=== PATIENT | female | born 1985 | race African-American/Black ===

== ENCOUNTER 2016-11-21 21:21 | Emergency (ER) | payer BC ==
[2016-11-21 21:46] VITALS: BP 132/80; PULSE 75; TEMP 98.2; BMI 23.3
--- NOTE | 2016-11-21 21:50 | PDOC ---
History of Present Illness - General Chief Complaint: Urinary Problem Stated Complaint: ABDOMINAL PAIN Time Seen by Provider: 11/21/16 21:48 History Source: Patient - History of Present Illness Timing/Duration: reports: constant Abdominal Pain Onset Location: reports: suprapubic Past History - Past Medical History Allergies/Adverse Reactions: Allergies Allergy/AdvReac Type Severity Reaction Status Date / Time No Known Drug Allergies Allergy Verified 11/21/16 21:28 Home Medications: Ambulatory Orders Nitrofurantoin Monohyd/M-Cryst [Macrobid -] 100 mg PO BID #13 capsule 11/21/16 Anemia: Yes Asthma: No Cancer: No Cardiac Disorders: No CVA: No COPD: No CHF: No Dementia: No Diabetes: No GI Disorders: No Disorders: No HTN: No Hypercholesterolemia: No Liver Disease: No Seizures: No Thyroid Disease: No - Surgical History Abdominal Surgery: Yes Appendectomy: Yes (03/2013) Cholecystectomy: No Orthopedic Surgery: No - Reproductive History (#): 0 Para: 0 Therapeutic (s) & number: No Spontaneous : 0 - Immunization History Immunization Up to Date: Yes - Psycho/Social/Smoking Cessation Hx Anxiety: No Suicidal Ideation: No Smoking Status: No Smoking History: Never smoked Have you smoked in the past 12 months: No Number of Cigarettes Smoked Daily: 0 Hx Alcohol Use: No Drug/Substance Use Hx: No Substance Use Type: None Hx Substance Use Treatment: No Abd/GI Specific PMHX - Complaint Specific PMHX GERD: No GI Ulcer Disease: No Review of Systems - Review of Systems Constitutional: No: Chills, Fever : Yes: Frequency. No: Discharge, Flank Pain, Hematuria *Physical Exam - Vital Signs Last Vital Signs Temp Pulse Resp BP Pulse Ox 98.2 F 75 16 132/80 98 11/21/16 21:33 11/21/16 21:33 11/21/16 21:33 11/21/16 21:33 11/21/16 21:33 - Physical Exam General Appearance: Yes: Appropriately Dressed. No: Apparent Distress HEENT: positive: Normal Voice Neck: positive: Supple Respiratory/Chest: negative: Respiratory Distress Gastrointestinal/Abdominal: positive: Soft. negative: Tender Musculoskeletal: negative: CVA Tenderness Integumentary: positive: Dry, Warm Neurologic: positive: Fully Oriented, Alert, Normal Mood/Affect Medical Decision Making - Medical Decision Making 11/21/16 21:59 31-year-old female, denies any past medical history, diagnosed with UTI at [facility] 2 weeks ago after p/w suprapubic discomfort and urinary frequency. Started on ceftin. Does not know results of urine culture as per pt. States though she completed medication, symptoms continue. Denies flank/ back pain, hematuria, nausea, vomiting, fever or chills. Feels well otherwise. No history of kidney stones. Patient well-appearing and stable with unremarkable exam, no e/o pyelo at this time. UA/culture pending though might be falsely negative based on recent abx course. No ucx on record to review 11/21/16 22:02 11/21/16 22:05 11/21/16 22:11 UA neg for le and nit. Will dc w/ macrobid. Reasons to return d/w pt *DC/Admit/Observation/Transfer Diagnosis at time of Disposition: Dysuria - Discharge Dispostion Disposition: HOME Condition at time of disposition: Good - Prescriptions Prescriptions: Nitrofurantoin Monohyd/M-Cryst [Macrobid -] 100 mg PO BID #13 capsule - Referrals Referrals: Nash Lepe MD [Primary Care Provider] - - Patient Instructions Printed Discharge Instructions: Urinary Tract Infection Additional Instructions: Take medication as directed and contact ED in 2-3 days for results of urine culture. The urine culture is to ensure that antibiotics we gave you will treat your infection. The number is [phone]. Return to ER for worsening of symptoms
[2016-11-21 22:03] LABS: URINE APPEARANCE CLEAR; URINE BILIRUBIN NEGATIVE (NEGATIVE); URINE BLOOD NEGATIVE (NEGATIVE); URINE COLOR STRAW; URINE GLUCOSE (UA) NEGATIVE (NEGATIVE); URINE KETONE NEGATIVE (NEGATIVE); URINE LEUK ESTERASE NEGATIVE (NEGATIVE); URINE NITRITE NEGATIVE (NEGATIVE); URINE PROTEIN NEGATIVE (NEGATIVE); URINE UROBILINOGEN NEGATIVE E.U./dl (0.2-1.0)
[2016-11-21] MEDS ORDERED: NITROFURANTOIN MACROCRYSTAL 50 MG CAPSULE (FP) ONE (22:05)
[2016-11-21] MEDS ORDERED: NITROFURANTOIN MACROCRYSTAL 50 MG CAPSULE (FP) PO SCH (22:15)
--- NOTE | 2016-11-21 22:24 | PDOC ---
*Physical Exam - Vital Signs Last Vital Signs Temp Pulse Resp BP Pulse Ox 98.2 F 75 16 132/80 98 11/21/16 21:33 11/21/16 21:33 11/21/16 21:33 11/21/16 21:33 11/21/16 21:33 ED Treatment Course - ADDITIONAL ORDERS Additional order review: Laboratory Results 11/21/16 21:50 Urine Color Straw Urine Appearance Clear Urine pH 6.0 Ur Specific [place] 1.011 Urine Protein Negative Urine Glucose (UA) Negative Urine Ketones Negative Urine Blood Negative Urine Nitrite Negative Urine Bilirubin Negative Urine Urobilinogen Negative Ur Leukocyte Esterase Negative Urine HCG, Qual Negative *DC/Admit/Observation/Transfer Diagnosis at time of Disposition: Dysuria - Discharge Dispostion Condition at time of disposition: Good - Prescriptions Prescriptions: Nitrofurantoin Monohyd/M-Cryst [Macrobid -] 100 mg PO BID #13 capsule - Referrals Referrals: Nash Lepe MD [Primary Care Provider] - - Patient Instructions Printed Discharge Instructions: Urinary Tract Infection Additional Instructions: Take medication as directed and contact ED in 2-3 days for results of urine culture. The urine culture is to ensure that antibiotics we gave you will treat your infection. The number is [phone]. Return to ER for worsening of symptoms - Post Discharge Activity
[2016-11-22 00:20] LABS: BASOPHIL 0.6 % (0-2.0); EOSINOPHIL 1.8 % (0-4.5); MCHC 33.8 g/dl (32.0-36.0); MEAN CELL VOLUME 91.7 fl (80-96); MEAN PLT VOLUME 10.2 fl (7.5-11.1); NEUTROPHILS 52.1 % (42.8-82.8); PLATELET COUNT 133 K/MM3 (134-434); WHITE BLOOD COUNT 5.8 K/mm3 (4.0-10.0)
[2016-11-22 00:46] LABS: ALBUMIN 4.1 g/dl (3.4-5.0); ALK PHOS 34 U/L (45-117); ANION GAP 11 (8-16); BILIRUBIN,TOTAL 0.6 mg/dL (0.2-1.0); CALCIUM 9.1 mg/dL (8.5-10.1); CO2 27 mmol/L (21-32); CREATININE 0.8 mg/dL (0.55-1.02); GLUCOSE,RANDOM 73 mg/dL (74-106); SGOT/AST 20 U/L (15-37); SGPT/ALT 19 U/L (12-78); TOT PROT 7.5 g/dl (6.4-8.2)
--- NOTE | 2016-11-25 12:21 | PDOC ---
Patient Follow-up (Call Back) - Post ED Follow - Up Condition at time of discharge: Good Disposition at time of original discharge: HOME - Disposition Additional Instructions/Notes: The patient called to [facility] and spoke with me extensively about how she still has urinary symptoms and should have been prescribed Cipro. I tried to explain to her multiple times that her urine culture came back negative for any bacteria and that I could not call her out a medication for a negative test. She was very upset and took my name down. I suggested she call a Urologist or follow up with her PCP, Dr. Lepe. She was not happy with that suggestion.
== END 2016-11-22 00:54 | disposition home or self-care (01) ==
LOC: JER 21:21
DX: R30.0 Dysuria (principal)
CPT/HCPCS: 36415; 80053; 81003; 84702; 84703; 85025; 87086; 99281-25

== ENCOUNTER 2016-12-12 01:51 | Emergency (ER) | payer BC ==
[2016-12-12 02:50] VITALS: BP 111/75; PULSE 66; TEMP 97.4; BMI 24.9
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
== END 2016-12-12 04:00 | disposition home or self-care (01) ==
LOC: JER 01:51
DX: F10.120 Alcohol abuse with intoxication, uncomplicated (principal)
CPT/HCPCS: 99281-25

== ENCOUNTER 2019-01-19 21:32 | Emergency (ER) | payer BC | END 2019-01-19 23:24 | LOC: JER 21:32 ==

== ENCOUNTER 2019-05-16 06:27 | Emergency (ER) | payer BC ==
[2019-05-16 06:34] VITALS: BMI 20.5
[2019-05-16] MEDS ORDERED: ACETAMINOPHEN 325 MG TABLET (FP) PO ONE (08:04)
[2019-05-16] MEDS ORDERED: ACETAMINOPHEN 325 MG TABLET (FP) ONE (08:15)
--- NOTE | 2019-05-16 08:16 | PDOC ---
History of Present Illness - General Chief Complaint: Vaginal Sxs Stated Complaint: labia pain Time Seen by Provider: 05/16/19 07:19 History Source: Patient Exam Limitations: No Limitations - History of Present Illness Initial Comments: 05/16/19 08:13 33F with a PMH of recent "cosmetic" labia surgery who presents to the ER with complaints of labia pain. She also states that she has "a blood clot down there " but does not describe it further. The patient states that the pain has worsened over the last "couple" days. She called the DYNAMITE CARTRIDGE CRIMPER who told her to put ice on it but it does not seem to be helping. She admits to taking ibuprofen with mild relief in symptoms. She states that she is allergic to "the strong stuff" but did not take tylenol. Admits to labial pain but denies fever, chills , nausea, vomiting, discharge, and dysuria. DYNAMITE CARTRIDGE CRIMPER who did surgery: Dr. Stanley Madrigal [phone] Past History - Past Medical History Allergies/Adverse Reactions: Allergies Allergy/AdvReac Type Severity Reaction Status Date / Time No Known Drug Allergies Allergy Verified 12/12/16 02:13 Home Medications: Ambulatory Orders Sulfamethoxazole/Trimethoprim [Bactrim Ds -] 1 tab PO BID #10 tablet 05/16/19 Anemia: Yes Asthma: No Cancer: No Cardiac Disorders: No CVA: No COPD: No CHF: No Dementia: No Diabetes: No GI Disorders: No Disorders: No HTN: No Hypercholesterolemia: No Liver Disease: No Seizures: No Thyroid Disease: No - Surgical History Abdominal Surgery: Yes Appendectomy: Yes (03/2013) Cholecystectomy: No Orthopedic Surgery: No - Reproductive History Is Patient Now?: No (#): 0 Para: 0 Therapeutic (s) & number: No Spontaneous : 0 - Immunization History Immunization Up to Date: Yes - Suicide/Smoking/Psychosocial Hx Smoking Status: No Smoking History: Never smoked Have you smoked in the past 12 months: No Number of Cigarettes Smoked Daily: 0 Hx Alcohol Use: No Drug/Substance Use Hx: No Substance Use Type: None Hx Substance Use Treatment: No Review of Systems - Review of Systems Able to Perform ROS?: Yes Is the patient limited Serbian proficient: No Constitutional: No: Chills, Fever Respiratory: No: Shortness of Breath Cardiac (ROS): No: Chest Pain ABD/GI: No: Nausea, Vomiting, Other (Abd pain) : Yes: Other (Labial pain). No: Burning, Dysuria, Discharge *Physical Exam - Vital Signs Last Vital Signs Temp Pulse Resp BP Pulse Ox 98.5 F 79 18 127/61 100 05/16/19 06:32 05/16/19 06:32 05/16/19 06:32 05/16/19 06:32 05/16/19 06:32 - Physical Exam Comments: 05/16/19 09:16 GENERAL: Well developed, well nourished. Awake and alert. No acute distress. HEENT: Normocephalic, atraumatic. Hearing grossly normal. Moist mucous membranes. PERRLA, EOMI. No conjunctival pallor. Sclera are non-icteric. NECK: Supple. Full ROM. No JVD. GENITOURINARY: R labia majora with redness, induration, and fluctuance on inferior margin without active drainage. MUSCULOSKELETAL: Normal range of motion at all joints. No bony deformities or tenderness. EXTREMITIES: No cyanosis. No clubbing. No edema. No calf tenderness or swelling. SKIN: Warm and dry. Normal capillary refill. No rashes. No jaundice. NEUROLOGICAL: Alert, awake, appropriate. Cranial nerves 2-12 grossly intact. Normal speech. Gait is normal without ataxia. PSYCHIATRIC: Cooperative. Good eye contact. Appropriate mood and affect. Medical Decision Making - Medical Decision Making 05/16/19 09:17 33F with a recent fat grafting to labia who presents with labial abscess. D/w Dr. Landeros who will see patient in office today or tomorrow. Pt aware. Given dose of abx and tylenol for pain control. Pt feels better and will d/c with PIERCING MILL OPERATOR f/u. *DC/Admit/Observation/Transfer Diagnosis at time of Disposition: Labial abscess - Discharge Dispostion Disposition: HOME Condition at time of disposition: Stable Decision to Admit order: No - Prescriptions Prescriptions: Sulfamethoxazole/Trimethoprim [Bactrim Ds -] 1 tab PO BID #10 tablet - Referrals - Patient Instructions Printed Discharge Instructions: DI for Incision and Drainage of a Skin Abscess Additional Instructions: Please follow up with Dr. Madrigal's office either today or tomorrow. He will have anesthesiologists in his office tomorrow at 1 pm. Please return to the ER if you have any signs or symptoms of chest pain, shortness of breath, uncontrollable fever, chills, nausea, vomiting, numbness, tingling, or weakness in any part of your body, changes in vision, or slurred speech. Please take your medications as prescribed. Please return to the ER if symptoms persist, worsen, or new symptoms arise. - Post Discharge Activity
[2019-05-16] MEDS ORDERED: SULFAMETHOXAZOLE/TRIMETHOPRIM 800MG/160MG D.S. TABLET PO ONE (09:15)
--- NOTE | 2019-05-16 09:18 | PDOC ---
Attending Attestation - Resident Resident Name: Les Caruso - ED Attending Attestation I have performed the following: I have examined & evaluated the patient, The case was reviewed & discussed with the resident, I agree w/resident's findings & plan, Exceptions are as noted - HPI HPI: 05/16/19 09:16 33 F with h/o recent vaginal labioplasty 8 days ago presenting to ED with R labial swelling and pain. Pt states that she had a "fat graft" to both labia. Over the past week, she has had worsening swelling and pain to the R side of her vagina. Denies any drainage. Denies F/C. - Physicial Exam PE: 05/16/19 09:17 "GENERAL: Awake, alert, and fully oriented, in no acute distress. HEAD: No signs of trauma EYES: PERRLA, EOMI, sclera anicteric, conjunctiva clear ENT: Auricles normal inspection, hearing grossly normal, nares patent, oropharynx clear without exudates. Moist mucosa NECK: Nontender, no stepoffs, Normal ROM, supple, no lymphadenopathy, JVD, or masses LUNGS: Breath sounds equal, clear to auscultation bilaterally. No wheezes, and no crackles HEART: Regular rate and rhythm, normal S1 and S2, no murmurs, rubs or gallops ABDOMEN: Soft, nontender, normoactive bowel sounds. No guarding, no rebound. No masses EXTREMITIES: Normal range of motion, no edema. No clubbing or cyanosis. No cords, erythema, or tenderness NEUROLOGICAL: Cranial nerves II through XII intact. 5/5 strength and sensation in all extremities, Normal speech, normal gait, normal cerebellar function SKIN: Warm, Dry, normal turgor, no rashes or lesions noted. : + R labia swollen with induration and fluctuance, tenderness to palpation, no active drainage - Medical Decision Making 05/16/19 09:18 33 F with likely post-op infection after labioplasty. - Discussed with pt's asphalt mixing machine operator, Dr. Madrigal, who recommends starting abx. He will see pt in his office today or tomorrow Pt is well appearing, with normal vitals. Clinically stable for DC at this time. I discussed the physical exam findings, ancillary test results and final diagnoses with the patient. I answered all of the patient's questions. The patient was satisfied with the care received and felt comfortable with the discharge plan and treatment plan. The patient agrees to follow up with the primary care physician within 24-72 hours.
[2019-05-16] MEDS ORDERED: SULFAMETHOXAZOLE/TRIMETHOPRIM 800MG/160MG D.S. TABLET ONE (09:30)
[2019-05-16 10:00] VITALS: BP 124/72; PULSE 74; TEMP 98.8
== END 2019-05-16 09:59 | disposition home or self-care (01) ==
LOC: JER 06:27
DX: N76.4 Abscess of vulva (principal)
CPT/HCPCS: 99282-25

== ENCOUNTER 2020-03-01 19:46 | Emergency (ER) | payer BC ==
[2020-03-01 19:55] VITALS: BMI 29.9
[2020-03-01] MEDS ORDERED: ACETAMINOPHEN 1000 MG/100 ML VIAL (NON FORMULARY) IVPB ONE (20:39)
[2020-03-01] MEDS ORDERED: SODIUM CHLORIDE 0.9% 500 ML INFUS.BAG IV ONE (20:40)
[2020-03-01 20:52] VITALS: BP 129/92; PULSE 97; TEMP 98.4
[2020-03-01] MEDS ORDERED: ACETAMINOPHEN INJECTION 100 ML IVPB ONE (20:56)
--- NOTE | 2020-03-01 21:02 | PDOC ---
History of Present Illness - General Chief Complaint: Choking Sensation Stated Complaint: COVID Time Seen by Provider: 03/01/20 20:00 - History of Present Illness Initial Comments: 34 YOF h/o PCOS s/p abdmonoplasty 2 shanta prior to arrival presents with fever, chest pain, palpatations and loss of smell and taste in the context of a recent COVID diagnosis. Per the patient, she was in [place] in January where she underwent an abdominoplasty and subsequently stayed in a "recovery house" with a number of other patients, one of which recently tested positive for COVID. She returned to [place] on February 20 and began to experience the following symptoms: loss of smell and taste, low grade fever, chest pain, palpatations, nausea and diarrhea. She presented on the 24 of February to [facility] where she received a COVID swab which was positive. She was discharged home with instructions to take tylenol and self isolate. Her symptoms continued up until today where she decided to come in for further evaluation. She denies SOB, vomiting, respiratory distress/ discomfort, leg swelling, pain on inspiration, loss of strength or sensation, speech difficulty, confusion, or drainage or pain at her surgical site. 03/01/20 21:19 Past History - Medical History Allergies/Adverse Reactions: Allergies Allergy/AdvReac Type Severity Reaction Status Date / Time No Known Drug Allergies Allergy Verified 03/01/20 19:54 Home Medications: Ambulatory Orders Sulfamethoxazole/Trimethoprim [Bactrim Ds -] 1 tab PO BID #10 tablet 05/16/19 Anemia: Yes Asthma: No Cancer: No Cardiac Disorders: No CVA: No COPD: No CHF: No Dementia: No Diabetes: No GI Disorders: No Disorders: No HTN: No Hypercholesterolemia: No Liver Disease: No Seizures: No Thyroid Disease: No - Surgical History Abdominal Surgery: Yes Appendectomy: Yes (03/2013) Cholecystectomy: No Orthopedic Surgery: No - Reproductive History (#): 0 Para: 0 Therapeutic (s) & number: No Spontaneous : 0 - Immunization History Immunization Up to Date: Yes - Psycho-Social/Smoking History Smoking Status: No Smoking History: Never smoked Have you smoked in the past 12 months: No Number of Cigarettes Smoked Daily: 0 - Substance Abuse Hx (Audit-C & DAST Scrn) How often the patient has a drink containing alcohol: Monthly or less Score: In Men: 4 or > Positive; In Women: 3 or > Positive: 1 Screen Result (Pos requires Nsg. Audit-10AR): Negative In the last yr the pt used illegal drug/Rx for NonMed reason: No Score: Yes response is considered Positive: 0 Screen Result (Positive result requires Nsg. DAST-10): Negative Review of Systems - Review of Systems Able to Perform ROS?: Yes Constitutional: Yes: See HPI HEENTM: Yes: See HPI Respiratory: Yes: See HPI Cardiac (ROS): Yes: See HPI ABD/GI: Yes: See HPI : Yes: See HPI Musculoskeletal: Yes: See HPI Integumentary: Yes: See HPI Neurological: Yes: See HPI Endocrine: Yes: See HPI Hematologic/Lymphatic: Yes: See HPI *Physical Exam - Vital Signs Last Vital Signs Temp Pulse Resp BP Pulse Ox 100.3 F H 55 L 20 149/99 100 03/01/20 19:51 03/01/20 19:51 03/01/20 19:51 03/01/20 19:51 03/01/20 19:56 Medical Decision Making - Medical Decision Making 34 YOF with fever, chest pain, palpitations, loss of sense of smell and taste, nausea, and diarrhea presents in the context of recent COVID diagnosis seeking further evaluation. She denies SOB, stroke symptoms, leg swelling, pleuritic pain, or symptoms of surgical site infection. Physical exam unrevealing of any abnormalities. Her lungs are clear, and she displays no signs of respiratory difficulty. Differential includes but is not limitted to: COVID-19 infection, [place]. Less concerned for PE/DVT given lack of pleuritic pain, SOB, or leg swelling. Plan: Will do CXR, EKG, Serum . Will give Tylenol 1000mgs and NS 1000 mls. Reassess: EKG showing normal sinus rythm, no longer febrile, O2 sat 100 on room air. Chest X Ray reviewed and interpretted by me no sign of infiltrate or consolidation, no opacities, no acute abnormalities. Selected Entries 03/01/20 20:20 Temperature 98.4 F Pulse Rate [ 97 H Right Radial] Respiratory 18 Rate Blood Pressure 129/92 [Left Arm] O2 Sat by Pulse 100 Oximetry (%) Dispo: Will discharge to home with advice to continue taking tylenol and self isolate given stable vitals, normal EKG and CXR. 03/01/20 22:01 Discharge - Discharge Information Problems reviewed: Yes Clinical Impression/Diagnosis: COVID-19, Palpitations Condition: Good Disposition: HOME - Admission No - Follow up/Referral - Patient Discharge Instructions Patient Printed Discharge Instructions: [facility] COVID-19 Isolation Protocol, R-Coronavirus Instructions Additional Instructions: You were here for symptoms related to COVID19. You were found to be medically stable. Your chest X ray, EKG, and labs, showed no abnormalities. You were given 1 liter of fluids and 1gram of tylenol for your symptoms. You were discharged and advised to self isolate and take tylenol for you symptoms. - Post Discharge Activity
--- NOTE | 2020-03-01 21:22 | PDOC ---
Documentation entered by Irena Lindsay SCRIBE, acting as scribe for Joshua Cespedes MD. Joshua Cespedes MD: This documentation has been prepared by the Neftali caballero Nirvannie, SCRIBE, under my direction and personally reviewed by me in its entirety. I confirm that the documentation accurately reflects all work, treatment, procedures, and medical decision making performed by me. Attending Attestation - Resident Resident Name: RadhaAaron - ED Attending Attestation I have performed the following: I have examined & evaluated the patient, The case was reviewed & discussed with the resident, I agree w/resident's findings & plan, Exceptions are as noted - HPI HPI: 03/01/20 21:21 The patient is a 34 year old female with a significant past medical history of recent covid diagnosis (02/24) who presents to the ED with a choking sensation. As per patient, she recently traveled to [place] to have a tummy tuck and believes she contracted covid there. Patient notes experiencing loss of taste/smell, generalized malaise, and fevers before being diagnosed with COVID on 02/24. Pt states that today, she began to have a choking sensation in her house. States that she feels like her throat is closing up, but this resolves as soon as she leaves. Pt has no complaints at this time in the ED. Denies SOB. Denies difficulty swallowing/breathing. Denies tongue or lip swelling. No foreign body sensation. - Physicial Exam PE: 03/01/20 21:24 "GENERAL: Awake, alert, and fully oriented, in no acute distress. HEAD: No signs of trauma EYES: PERRLA, EOMI, sclera anicteric, conjunctiva clear ENT: Auricles normal inspection, hearing grossly normal, nares patent, oropharynx clear without exudates. Moist mucosa NECK: Nontender, no stepoffs, Normal ROM, supple, no lymphadenopathy, JVD, or masses LUNGS: Breath sounds equal, clear to auscultation bilaterally. No wheezes, and no crackles HEART: Regular rate and rhythm, normal S1 and S2, no murmurs, rubs or gallops ABDOMEN: Soft, nontender, normoactive bowel sounds. No guarding, no rebound. No masses EXTREMITIES: Normal range of motion, no edema. No clubbing or cyanosis. No cords, erythema, or tenderness NEUROLOGICAL: Cranial nerves II through XII intact. 5/5 strength and sensation in all extremities, Normal speech, normal gait, normal cerebellar function SKIN: Warm, Dry, normal turgor, no rashes or lesions noted. - Medical Decision Making 03/01/20 21:24 34 F with intermittent choking sensation, now asymptomatic in ED. No stridor on exam or other evidence of upper airway obstruction. Pt well appearing, normal exam. Noted to have fever in ED, likely due to active COVID infection. - CXR - Tylenol 03/01/20 21:59 CXR clear Pt re-evaluated, continues to feel well with no complaints. Pt is well appearing, with normal vitals. Clinically stable for DC at this time. I discussed the physical exam findings, ancillary test results and final diagnoses with the patient. I answered all of the patient's questions. The patient was satisfied with the care received and felt comfortable with the discharge plan and treatment plan. The patient agrees to follow up with the primary care physician within 24-72 hours. Please note this patient was evaluated during the COVID-19 crisis with the presidential Salazar Act Declaration and the [facility] executive order number 202. He/she was evaluated and clinical decisions were made relative to healthcare system resources as well as clinical picture during a pandemic crisis situation. Discharge - Discharge Information Problems reviewed: Yes Clinical Impression/Diagnosis: COVID-19, Palpitations Condition: Good Disposition: HOME - Follow up/Referral - Patient Discharge Instructions Patient Printed Discharge Instructions: [facility]-Coronavirus Instructions, [facility]- [facility] COVID-19 Isolation Protocol Additional Instructions: You were here for symptoms related to COVID19. You were found to be medically stable. Your chest X ray, EKG, and labs, showed no abnormalities. You were given 1 liter of fluids and 1gram of tylenol for your symptoms. You were discharged and advised to self isolate and take tylenol for you symptoms. - Post Discharge Activity
--- NOTE | 2020-03-02 10:22 | EKG ---
Test Reason : Blood Pressure : / mmHG Vent. Rate : 089 BPM Atrial Rate : 089 BPM P-R Int : 164 ms QRS Dur : 078 ms QT Int : 358 ms P-R-T Axes : 073 055 016 degrees QTc Int : 435 ms NORMAL SINUS RHYTHM NORMAL ECG WHEN COMPARED WITH ECG OF 19-JAN-2019 21:53, NO SIGNIFICANT CHANGE WAS FOUND Confirmed by Krishna Fisher ([id number]) on 03/02/2020 10:22:24 AM Referred By: Confirmed By:Krishna Fisher
== END 2020-03-01 22:33 | disposition home or self-care (01) ==
LOC: JER 19:46
PROC: 3E033NZ Introduction of Analgesics, Hypnotics, Sedatives into Peripheral Vein, Percutaneous Approach (ICD-10-PCS; principal; 2020-03-01)
DX: R00.2 Palpitations (principal); U07.1 COVID-19
CPT/HCPCS: 36415; 71046-TC-FY; 84703; 93005; 93010; 99284-25

== ENCOUNTER 2020-03-08 18:31 | Emergency (ER) | payer BC ==
[2020-03-08 18:57] VITALS: BP 133/91; TEMP 98.7; BMI 30.1
--- NOTE | 2020-03-08 19:26 | PDOC ---
Attending Attestation - Resident Resident Name: TarabonitaWarren - ED Attending Attestation I have performed the following: I have examined & evaluated the patient, The case was reviewed & discussed with the resident, I agree w/resident's findings & plan - HPI HPI: 03/08/20 19:39 Pt states that she tested COVID + on February 24 at [facility]. Pt has PMHx of tummy tuck recently Pt has been to out ER for panic attacks in the past. Pt is requesting another COVID test. Pt is requesting Remdesivir. Pt has normal pulsox 99% on RA Pt wants a stomach XR to make sure her "tummy tuck is OK" Pt has no fever. SPeaking in full sentences. Appears well. Needs reassurance. - Physicial Exam PE: 03/08/20 19:45 Normal exam Normal vitals - Medical Decision Making 03/08/20 20:36 lung ball normal on CXR; slightly increased markings unchaged from last week. Pt appears well EKG normal. Pt will be reassured and discharged Heart Score/ECG Review - ECG Intrepretation Rhythm: Regular Rhythm - [place]: Normal - P and [place] Prominent R with upright T in V1 (true posterior NC): No - QRS Poor R Wave Progression: No Q Wave Present: No - ST and T Early Repolarization: No Non Specific ST-T Wave changes: No Flattened T Waves: No Prolonged Q-T Interval: No - ECG Impressions Normal ECG: Yes Non-specific ST Elevation: No Ischemic Changes: No Bradycardia: No Torsades martha Pointes: No WPW: No Discharge - Discharge Information Problems reviewed: Yes Clinical Impression/Diagnosis: Palpitations Condition: Improved Disposition: HOME - Admission No - Follow up/Referral - Patient Discharge Instructions Patient Printed Discharge Instructions: Eating a Diet Rich in Fruits and Vegetables - Post Discharge Activity
[2020-03-08 19:52] VITALS: PULSE 119
--- NOTE | 2020-03-08 23:51 | PDOC ---
History of Present Illness - General Chief Complaint: Palpitations Stated Complaint: SOB COVID+ Time Seen by Provider: 03/08/20 19:25 History Source: Patient - History of Present Illness Initial Comments: 03/08/20 23:50 34yo F p/w palpitations, anxiety about Covid, requesting workup. States she has been having difficulty since Covid diagnosis and no one can help her. Afraid she is going to . States she thinks she has an arrhythmia and requesting workup and remdesivir. Denies f/c, n/v, cough, congestion. I explained that EKG was normal and gave reassurance. Gave relaxation techniques. 03/09/20 12:04 Past History - Medical History Allergies/Adverse Reactions: Allergies Allergy/AdvReac Type Severity Reaction Status Date / Time No Known Drug Allergies Allergy Verified 03/01/20 19:54 Home Medications: Ambulatory Orders NK [No Known Home Medication] 03/08/20 Anemia: Yes Asthma: No Cancer: No Cardiac Disorders: No CVA: No COPD: No CHF: No Dementia: No Diabetes: No GI Disorders: No Disorders: No HTN: No Hypercholesterolemia: No Liver Disease: No Seizures: No Thyroid Disease: No - Surgical History Abdominal Surgery: Yes Appendectomy: Yes (03/2013) Cholecystectomy: No Orthopedic Surgery: No - Reproductive History (#): 0 Para: 0 Therapeutic (s) & number: No Spontaneous : 0 - Immunization History Immunization Up to Date: Yes - Psycho-Social/Smoking History Smoking Status: No Smoking History: Never smoked Have you smoked in the past 12 months: No Number of Cigarettes Smoked Daily: 0 Information on smoking cessation initiated: No - Substance Abuse Hx (Audit-C & DAST Scrn) How often the patient has a drink containing alcohol: 2-4 times / month How often the patient has six or more drinks on one occasion: Never Score: In Men: 4 or > Positive; In Women: 3 or > Positive: 2 Screen Result (Pos requires Nsg. Audit-10AR): Negative In the last yr the pt used illegal drug/Rx for NonMed reason: No Score: Yes response is considered Positive: 0 Screen Result (Positive result requires Nsg. DAST-10): Negative Review of Systems - Review of Systems Able to Perform ROS?: Yes Constitutional: No: Chills, Fever HEENTM: No: Eye Pain, Blurred Vision Respiratory: No: Cough, SOB at Rest Cardiac (ROS): Yes: Palpitations. No: Chest Pain ABD/GI: No: Constipated, Diarrhea : No: Burning, Dysuria Musculoskeletal: No: Back Pain, Joint Pain Integumentary: No: Erythema, Flushing Neurological: No: Headache, Numbness Psychiatric: Yes: Stressors. No: Depression Endocrine: No: Intolerance to Cold, Intolerance to Heat Hematologic/Lymphatic: No: Anemia, Blood Clots *Physical Exam - Vital Signs Last Vital Signs Temp Pulse Resp BP Pulse Ox 98.7 F 119 H 20 133/91 99 03/08/20 18:35 03/08/20 19:51 03/08/20 19:51 03/08/20 18:35 03/08/20 19:51 - Physical Exam General Appearance: Yes: Nourished, Appropriately Dressed HEENT: positive: EOMI, ILIANA Neck: positive: Supple Medical Decision Making - Medical Decision Making 03/09/20 12:09 34yo female with concern about Covid presenting with palpitations. EKG and CXR wnl -reassure -discharge with PCP f/u Discharge - Discharge Information Problems reviewed: Yes Clinical Impression/Diagnosis: Palpitations Condition: Improved Disposition: HOME - Follow up/Referral - Patient Discharge Instructions Patient Printed Discharge Instructions: Eating a Diet Rich in Fruits and Vegetables - Post Discharge Activity
--- NOTE | 2020-03-09 09:36 | EKG ---
Test Reason : Blood Pressure : / mmHG Vent. Rate : 099 BPM Atrial Rate : 099 BPM P-R Int : 164 ms QRS Dur : 078 ms QT Int : 314 ms P-R-T Axes : 075 063 006 degrees QTc Int : 402 ms NORMAL SINUS RHYTHM POSSIBLE LEFT ATRIAL ENLARGEMENT T WAVE ABNORMALITY, CONSIDER INFERIOR ISCHEMIA ABNORMAL ECG WHEN COMPARED WITH ECG OF 01-MAR-2020 21:03, NONSPECIFIC T WAVE ABNORMALITY NOW EVIDENT IN LATERAL LEADS Confirmed by Krishna Fisher ([id number]) on 03/09/2020 9:35:23 AM Referred By: Confirmed By:Krishna Fisher
== END 2020-03-08 20:52 | disposition home or self-care (01) ==
LOC: JER 18:31
DX: R00.2 Palpitations (principal)
CPT/HCPCS: 71046-TC-FY; 93005; 93010; 99285-25

== ENCOUNTER 2020-03-15 20:38 | Emergency (ER) | payer BC ==
--- NOTE | 2020-03-15 20:43 | PDOC ---
Rapid Medical Evaluation Time Seen by Provider: 03/15/20 20:40 Medical Evaluation: Allergies Allergy/AdvReac Type Severity Reaction Status Date / Time No Known Drug Allergies Allergy Verified 03/01/20 19:54 03/15/20 20:40 34 year old female no pmhx COVID positive 02/24 recent abdominal plasty on 02/12 (pt states no signs of infection at incision) complaining of chest pain and palpitations. Pt states she went to [place] for surgery and thinks thats where she got COVID. Pt states at home on pulse ox her HR was in the 130s and O2 sat between 93-98%. Pt states the palpiations come and go. Has not been drinking well. denies fever chills nausea vomiting PE: WNL VSS Plan EKG Chest XR Labs pt moved to main ED for further treatment and care
[2020-03-15] MEDS ORDERED: SODIUM CHLORIDE 0.9% 500 ML INFUS.BAG IV ONE (20:45)
[2020-03-15 21:00] VITALS: BP 133/86; TEMP 98.7; BMI 28.7
--- NOTE | 2020-03-15 21:05 | PDOC ---
History of Present Illness - General Chief Complaint: Palpitations Stated Complaint: PALPITATIONS/COVED EVAL Time Seen by Provider: 03/15/20 20:40 History Source: Patient Exam Limitations: No Limitations - History of Present Illness Initial Comments: 03/15/20 21:05 HPI: 34yo F no sign pmh COVID+ 02/24 presenting with palpitations, concern regarding COVID19. Patient was worried about her COVID, took her vitals at home, found her Sat ranging 93-98%, HR 120s. Resolved to HR 90s, Sat 98% on arrival here. Endorses palpitations, diaphoresis (worse since heat wave, apartment without AC) with increased PO hydration. She states she never had palpitations before COVID, with multiple episodes since infection. Denies chest pain, cough, SOB, measured fevers, chills, syncope, lightheadedness. Expresses frustrations with healthcare system, wants a repeat COVID swab to know if she is clear to go to the store. Has taken 2 rounds of Z-packs, doxycycline for "its excellent anti-inflammatory and antiviral properties," and no longer takes Tylenol due to her belief that "it causes immune suppression." Denies pain / discharge / skin changes at prior surgical site (now 1 month s/p tummy tuck). All: NKDA Meds: Denies PMH: PCOS PSH: Breast and "tummy tuck" Past History - Travel History Traveled outside of the country in the last 30 days: No Close contact w/someone who was outside of country & ill: No - Medical History Allergies/Adverse Reactions: Allergies Allergy/AdvReac Type Severity Reaction Status Date / Time No Known Drug Allergies Allergy Verified 03/01/20 19:54 Home Medications: Ambulatory Orders NK [No Known Home Medication] 03/08/20 Anemia: Yes Asthma: No Cancer: No Cardiac Disorders: No CVA: No COPD: No CHF: No Dementia: No Diabetes: No GI Disorders: No Disorders: No HTN: No Hypercholesterolemia: No Liver Disease: No Seizures: No Thyroid Disease: No - Surgical History Abdominal Surgery: Yes Appendectomy: Yes (03/2013) Cholecystectomy: No Orthopedic Surgery: No - Reproductive History (#): 0 Para: 0 Therapeutic (s) & number: No Spontaneous : 0 - Immunization History Immunization Up to Date: Yes - Psycho-Social/Smoking History Smoking Status: No Smoking History: Never smoked Have you smoked in the past 12 months: No Number of Cigarettes Smoked Daily: 0 - Substance Abuse Hx (Audit-C & DAST Scrn) How often the patient has a drink containing alcohol: Never Score: In Men: 4 or > Positive; In Women: 3 or > Positive: 0 Screen Result (Pos requires Nsg. Audit-10AR): Negative Review of Systems - Review of Systems Able to Perform ROS?: Yes Is the patient limited Vincentian proficient: Yes Constitutional: Yes: Diaphoresis (in setting of no AC, increase humidity and ambient temp). No: Chills, Fever HEENTM: No: Nose Congestion, Hearing Loss, Throat Pain Respiratory: No: Cough, Shortness of Breath, Wheezing Cardiac (ROS): No: Chest Pain, Edema, Lightheadedness, Palpitations ABD/GI: No: Constipated, Diarrhea, Nausea, Vomiting : No: Burning, Dysuria, Frequency Musculoskeletal: No: Back Pain, Muscle Pain, Muscle Weakness Integumentary: No: Dryness, Erythema, Lumps, Rash Neurological: No: Headache, Numbness, Tingling, Weakness Psychiatric: No: Stressors, Change in Appetite Endocrine: No: Increased Thirst, Increased Urine Hematologic/Lymphatic: No: Anemia, Blood Clots, Easy Bleeding All Other Systems: Reviewed and Negative *Physical Exam - Vital Signs Last Vital Signs Temp Pulse Resp BP Pulse Ox 98.7 F 91 H 20 133/86 98 03/15/20 20:58 03/15/20 20:58 03/15/20 20:58 03/15/20 20:58 03/15/20 20:58 - Physical Exam 03/15/20 22:18 Vitals reviewed, AFVSS - normal HR, Sat, RR GEN: Well appearing, appears stated age, NAD, comfortable. AAOx3. Wearing an N95 over two surgical masks over a cloth mask and lab goggles. HEENT: NCAT, EOMI, PERRL. Sclera anicteric, noninjected. No facial asymmetry. Moist mucous membranes. Normal voice. Trachea midline. CV: RRR, S1/S2, no murmurs / rubs / gallops appreciated. LUNG: CTABL, normal work of breathing. No wheezes, rales, rhonchi. No cough. Speaking full sentences. GI: Soft, NTND, +BS, no guarding, no rebound. No masses. Surgical site healing appropriately, no erythema, warmth, swelling, drainage, crepitus. EXTREMITIES: 2+ distal pulses. No clubbing / cyanosis / edema. No gross d eformity in any extremity. SKIN: Warm, dry, no rashes appreciated, non-jaundiced. PSYCH: Normal mood and affect. Cooperative and appropriate. Illness anxiety, mistrust of medical guidance during COVID pandemic. NEURO: CN grossly intact. Moving all extremities well. Normal strength and sensation grossly. ED Treatment Course - LABORATORY CBC & Chemistry Diagram: 03/15/20 21:40 03/15/20 21:40 Medical Decision Making - Medical Decision Making 03/15/20 22:13 34yo F no sign pmh COVID+ 02/24 presenting with palpitations, concern regarding COVID19. History notable for multiple visits, illness anxiety, mistrust of the medical system. Exam notable for stable vitals without tachycardia, with 98% saturation on room air with normal WOB and easy speech throughout encounter, no signs of infection including at surgical sites, no evidence / history suggesting DVT. Concerning for anxiety, no physical concerns on exam, history notable for diaphoresis in heat / humidity with desire for COVID swab. Counselled extensively regarding medical misconceptions, return precautions. - CBC, CMP, Cardiac Profile - CXR, EKG EKG NSR 91bpm normal axis normal intervals, no concerning morphologies or ischemic changes 03/15/20 22:55 CXR unchanged compared with normal 03/08 film Labs unremarkable Dispo: Home Discharge - Discharge Information Problems reviewed: Yes Clinical Impression/Diagnosis: Palpitations Condition: Stable Disposition: HOME - Admission No - Follow up/Referral - Patient Discharge Instructions Patient Printed Discharge Instructions: DI for Palpitations Additional Instructions: You were seen and evaluated for palpitations and sweating. Your workup was negative for life-threatening causes. Since you wish to have additional COVID testing, please call the department of health for information about your nearest testing sites. Please follow up with your primary care doctor in the next 2-3 days for continued care. Return to the ED for any new or concerning symptoms. - Post Discharge Activity
--- NOTE | 2020-03-15 22:08 | PDOC ---
Documentation entered by Irena Lindsay SCRIBE, acting as scribe for Joshua Cespedes MD. Joshua Cespedes MD: This documentation has been prepared by the Neftali caballero Nirvannie, SCRIBE, under my direction and personally reviewed by me in its entirety. I confirm that the documentation accurately reflects all work, treatment, procedures, and medical decision making performed by me. Attending Attestation - Resident Resident Name: ChristophJw - ED Attending Attestation I have performed the following: I have examined & evaluated the patient, The case was reviewed & discussed with the resident, I agree w/resident's findings & plan, Exceptions are as noted - HPI HPI: 03/15/20 21:58 The patient is a 34 year old female with a significant past medical history of recent covid diagnosis (02/24) with subsequent multiple ED visits who presents to the ED with palpitations. As per patient, she recently traveled to [place] to have a [employer] and believes she contracted covid there. Patient notes experiencing loss of taste/smell, generalized malaise, and fevers before being diagnosed with COVID on 02/24. Per EMR, she was evaluated in the ED for a lack of taste/smell (02/24 diagnosed covid +), choking sensation (03/01) and requesting repeat covid testing (03/08). Today, while sitting in her apartment which is not air conditioned (currently heat wave in [place]), she began to feel anxious and hot. She subsequently checked her heart rate and found it to be elevated, prompting her arrival to the ED. Patient notes she is on her third course of Azithromycin and has already finished a course of Doxycycline. Patient notes she no longer takes Tylenol because "it suppresses her immune system. She denies any chest pain, shortness of breath. Denies lightheadedness/palpitations at this time. Denies F/C. - Physicial Exam PE: 03/15/20 22:09 "GENERAL: Awake, alert, and fully oriented, in no acute distress. HEAD: No signs of trauma EYES: PERRLA, EOMI, sclera anicteric, conjunctiva clear ENT: Auricles normal inspection, hearing grossly normal, nares patent, oropharynx clear without exudates. Moist mucosa NECK: Nontender, no stepoffs, Normal ROM, supple, no lymphadenopathy, JVD, or masses LUNGS: Breath sounds equal, clear to auscultation bilaterally. No wheezes, and no crackles HEART: Regular rate and rhythm, normal S1 and S2, no murmurs, rubs or gallops ABDOMEN: Soft, nontender, normoactive bowel sounds. No guarding, no rebound. No masses EXTREMITIES: Normal range of motion, no edema. No clubbing or cyanosis. No cords, erythema, or tenderness NEUROLOGICAL: Cranial nerves II through XII intact. 5/5 strength and sensation in all extremities, Normal speech, normal gait, normal cerebellar function SKIN: Warm, Dry, normal turgor, no rashes or lesions noted. - Medical Decision Making 03/15/20 22:09 34 F here for tachycardia at home. Now with normal vitals. Well appearing on exam. EKG NSR with no evidence of arrhythmia. - Labs - CXR - IV fluids 03/15/20 22:55 Labs wnl CXR clear on my read Pt ambulatory with normal vitals, normal O2 sat. Pt is well appearing, with normal vitals. Clinically stable for DC at this time. I discussed the physical exam findings, ancillary test results and final diagnoses with the patient. I answered all of the patient's questions. The patient was satisfied with the care received and felt comfortable with the discharge plan and treatment plan. The patient agrees to follow up with the primary care physician within 24-72 hours. Please note this patient was evaluated during the COVID-19 crisis with the presidential Salzaar Act Declaration and the [place] govern[employer] executive order number 202. He/she was evaluated and clinical decisions were made relative to healthcare system resources as well as clinical picture during a pandemic crisis situation. Discharge - Discharge Information Problems reviewed: Yes Clinical Impression/Diagnosis: Palpitations, COVID-19, Anxiety Condition: Stable Disposition: HOME - Follow up/Referral - Patient Discharge Instructions Patient Printed Discharge Instructions: DI for Palpitations Additional Instructions: You were seen and evaluated for palpitations and sweating. Your workup was negative for life-threatening causes. Since you wish to have additional COVID testing, please call the department of health for information about your nearest testing sites. Please follow up with your primary care doctor in the next 2-3 days for continued care. Return to the ED for any new or concerning symptoms. - Post Discharge Activity
[2020-03-15 22:09] LABS: BASO % 0.5 % (0-2.0); EOS % 0.9 % (0-4.5); HEMATOCRIT 38.4 % (32.4-45.2); HEMOGLOBIN 12.9 GM/dL (10.7-15.3); LYMPH % 40.6 % (8-40); MCH 31.2 pg (25.7-33.7); MCHC 33.5 g/dl (32.0-36.0); MEAN CELL VOLUME 93.1 fl (80-96); MONO % 7.7 % (3.8-10.2); NEUT % 50.3 % (42.8-82.8); PLATELET COUNT 220 K/MM3 (134-434); RBC 4.13 M/mm3 (3.60-5.2); RDW 13.9 % (11.6-15.6); WHITE BLOOD COUNT 4.8 K/mm3 (4.0-10.0)
[2020-03-15 22:21] LABS: ALBUMIN 3.8 g/dl (3.4-5.0); ANION GAP 5 MMOL/L (8-16); CALCIUM 9.5 mg/dL (8.5-10.1); CHLORIDE 106 mmol/L (98-107); CO2 27 mmol/L (21-32); CREATININE 0.8 mg/dL (0.55-1.3); GLUCOSE,RANDOM 104 mg/dL (74-106); POTASSIUM 3.6 mmol/L (3.5-5.1); SGOT/AST 18 U/L (15-37); SGPT/ALT 26 U/L (13-61); SODIUM 138 mmol/L (136-145); TOT PROT 7.2 g/dl (6.4-8.2)
[2020-03-15 22:38] LABS: ALK PHOS 41 U/L (45-117); BILIRUBIN,TOTAL 0.5 mg/dL (0.2-1)
[2020-03-15 23:16] VITALS: PULSE 88
--- NOTE | 2020-03-16 09:09 | EKG ---
Test Reason : Blood Pressure : / mmHG Vent. Rate : 091 BPM Atrial Rate : 091 BPM P-R Int : 164 ms QRS Dur : 076 ms QT Int : 342 ms P-R-T Axes : 073 043 022 degrees QTc Int : 420 ms NORMAL SINUS RHYTHM NORMAL ECG WHEN COMPARED WITH ECG OF 08-MAR-2020 18:55, NO SIGNIFICANT CHANGE WAS FOUND Confirmed by Krishna Fisher ([id number]) on 03/16/2020 9:08:54 AM Referred By: Confirmed By:Krishna Fisher
== END 2020-03-15 23:16 | disposition home or self-care (01) ==
LOC: JER 20:38
DX: R00.2 Palpitations (principal)
CPT/HCPCS: 36415; 71045-TC-FY; 80053; 82550; 84484; 85025; 86850; 86900; 86901; 93005; 93010; 99285-25

== ENCOUNTER 2020-04-19 19:32 | Emergency (ER) | payer BC ==
[2020-04-19 19:47] VITALS: BMI 31.1
--- NOTE | 2020-04-19 19:58 | PDOC ---
History of Present Illness - General History Source: Patient Exam Limitations: No Limitations - History of Present Illness Initial Comments: 04/19/20 20:03 34yF w PMHx anxiety, COVID+ 02/24 presenting with 2wks intermittent palpitations, arm tingling, anxiety in the setting of recent life stressors. Pt is anxious about jose m covid again after having sexual intercourse with a friend 3wks ago who had covid and STD. Went to an outside hospital 2wks ago, received STD meds, but still having palpitations. Also anxious about abnormal vitamin B12 and D levels shown up on recent blood work completed by OBGYN. Symptoms not exertional. Evaluated 4x in ED last month for palpitations with negative workup attributed to anxiety. Does not have PCP or a therapist/psychiatrist. Denies fever, cough, chest pain, SOB, fatigue, vaginal bleeding/discharge <Óscar Arredondo - Last Filed: 04/19/20 22:29> <Roel Lomas - Last Filed: 04/19/20 23:12> - General Chief Complaint: Palpitations Stated Complaint: HEADACHE/PALPITATION Time Seen by Provider: 04/19/20 19:57 Past History - Medical History Anemia: Yes Asthma: No Cancer: No Cardiac Disorders: No CVA: No COPD: No CHF: No Dementia: No Diabetes: No GI Disorders: No Disorders: No HTN: No Hypercholesterolemia: No Liver Disease: No Seizures: No Thyroid Disease: No - Surgical History Abdominal Surgery: Yes Appendectomy: Yes (03/2013) Cholecystectomy: No Orthopedic Surgery: No - Reproductive History Is Patient Now?: No (#): 0 Para: 0 Therapeutic (s) & number: No Spontaneous : 0 - Immunization History Immunization Up to Date: Yes - Psycho-Social/Smoking History Smoking Status: No Smoking History: Never smoked Have you smoked in the past 12 months: No Number of Cigarettes Smoked Daily: 0 - Substance Abuse Hx (Audit-C & DAST Scrn) How often the patient has a drink containing alcohol: Never Score: In Men: 4 or > Positive; In Women: 3 or > Positive: 0 Screen Result (Pos requires Nsg. Audit-10AR): Negative In the last yr the pt used illegal drug/Rx for NonMed reason: No Score: Yes response is considered Positive: 0 Screen Result (Positive result requires Nsg. DAST-10): Negative <Óscar Arredondo - Last Filed: 04/19/20 22:29> <Roel Lomas - Last Filed: 04/19/20 23:12> - Medical History Allergies/Adverse Reactions: Allergies Allergy/AdvReac Type Severity Reaction Status Date / Time No Known Drug Allergies Allergy Verified 03/01/20 19:54 Home Medications: Ambulatory Orders NK [No Known Home Medication] 03/08/20 Review of Systems - Review of Systems Constitutional: No: Chills, Fever HEENTM: No: Eye Pain, Nose Congestion Respiratory: No: Cough, Shortness of Breath Cardiac (ROS): Yes: Palpitations. No: Chest Pain ABD/GI: No: Constipated, Diarrhea, Nausea, Vomiting : No: Burning, Dysuria Musculoskeletal: No: Back Pain, Joint Pain Integumentary: No: Bruising, Flushing Neurological: No: Headache, Seizure Psychiatric: No: Anxiety, Depression Endocrine: No: Intolerance to Cold, Intolerance to Heat Hematologic/Lymphatic: No: Anemia, Blood Clots <Óscar Arredondo - Last Filed: 04/19/20 22:29> *Physical Exam - Vital Signs Last Vital Signs Temp Pulse Resp BP Pulse Ox 98.6 F 84 19 128/87 98 04/19/20 19:44 04/19/20 19:44 04/19/20 19:44 04/19/20 19:44 04/19/20 19:44 - Physical Exam General Appearance: Yes: Nourished, Appropriately Dressed, Mild Distress HEENT: positive: EOMI, ILIANA, Hearing Grossly Normal. negative: Scleral Icterus (R), Scleral Icterus (L) Respiratory/Chest: positive: Lungs Clear, Normal Breath Sounds. negative: Chest Tender, Respiratory Distress Cardiovascular: positive: Regular Rhythm, Regular Rate, S1, S2. negative: Edema, Murmur Gastrointestinal/Abdominal: positive: Normal Bowel Sounds, Flat, Soft. negative: Tender, Organomegaly Integumentary: positive: Normal Color, Warm. negative: Rash Neurologic: positive: processing analyst II-XII NML intact, Fully Oriented, Alert, Normal Response, Motor Strength 5/5, Responsive. negative: Normal Mood/Affect (anxious, talkative), Numbness, Sensory Deficit, Confused, Disoriented <Óscar Arredondo - Last Filed: 04/19/20 22:29> - Vital Signs Last Vital Signs Temp Pulse Resp BP Pulse Ox 98.2 F 65 18 120/69 99 04/19/20 22:30 04/19/20 22:30 04/19/20 22:30 04/19/20 22:30 04/19/20 22:30 <Roel Lomas - Last Filed: 04/19/20 23:12> ED Treatment Course - ADDITIONAL ORDERS Additional order review: Laboratory Results 04/19/20 20:40 Urine HCG, Qual Negative - Medications Given in the ED: ED Medications Discontinued Medications Generic Name Dose Route Start Last Admin Trade Name Logan PRN Reason Stop Dose Admin Diazepam 2 mg 04/19/20 20:23 04/19/20 20:50 Valium - PO 04/19/20 20:24 Not Given ONCE ONE <Roel Lomas - Last Filed: 04/19/20 23:12> Medical Decision Making - Medical Decision Making 04/19/20 20:29 EKG - NSR, HR 83, QTc 401, no ST changes CXR - clear lung ball --- 34yF w PMHx anxiety, COVID+ 02/24 presenting with 2wks intermittent palpitations, arm tingling, anxiety in the setting of recent life stressors. Symptoms likely d/t anxiety. Vitals stable, EKG no concerning changes, neg , clear lung ball no sign of PNA. Evaluated multiple times in last 2mo for palpitations w neg workup Pt refused valium DC w PCP, psych, cards referrals <Óscar Arredondo - Last Filed: 04/19/20 22:29> Discharge - Discharge Information Problems reviewed: Yes <Óscar Arredondo - Last Filed: 04/19/20 22:29> - Discharge Information Problems reviewed: Yes <Roel Lomas - Last Filed: 04/19/20 23:12> - Discharge Information Clinical Impression/Diagnosis: Anxiety, Palpitations Condition: Good Disposition: HOME - Follow up/Referral Referrals: Elder Coe MD [Staff Physician] - Larry Arambula MD [Staff Physician] - Chuy Hemphill NP [Nurse Practitioner] - - Patient Discharge Instructions Patient Printed Discharge Instructions: DI for Anxiety -- Adult, DI for Palpitations Additional Instructions: Your exam and workup did not show anything concerning. You do not any any signs of coronavirus or lung infection on your chest x-ray Go to [email or web address] to get more information about where to get covid testing Please follow up with the referred primary care Dr Coe, regulator pin inserter Dr Arambula, and therapist DARIO Hemphill regarding your symptoms
[2020-04-19] MEDS ORDERED: diazePAM 2 MG TABLET PO ONE (20:23)
[2020-04-19] MEDS ORDERED: diazePAM 2 MG TABLET ONE (20:33)
[2020-04-19 22:51] VITALS: BP 120/69; PULSE 65; TEMP 98.2
--- NOTE | 2020-04-20 18:23 | EKG ---
Test Reason : Blood Pressure : / mmHG Vent. Rate : 083 BPM Atrial Rate : 083 BPM P-R Int : 150 ms QRS Dur : 086 ms QT Int : 342 ms P-R-T Axes : 063 027 012 degrees QTc Int : 401 ms NORMAL SINUS RHYTHM POSSIBLE LEFT ATRIAL ENLARGEMENT NONSPECIFIC T WAVE ABNORMALITY ABNORMAL ECG WHEN COMPARED WITH ECG OF 15-MAR-2020 20:58, T WAVE VARIATION Confirmed by ANANT MONROE MD ([id number]) on 04/20/2020 6:22:58 PM Referred By: Confirmed By:ANANT MONROE MD
--- NOTE | 2020-04-20 23:48 | PDOC ---
Documentation entered by Hernan Arroyo SCRIBE, acting as scribe for Roel Lomas DO. Roel Lomas DO: This documentation has been prepared by the ada, Hernan Arroyo SCRIBE, under my direction and personally reviewed by me in its entirety. I confirm that the documentation accurately reflects all work, treatment, procedures, and medical decision making performed by me. Attending Attestation - Resident Resident Name: Óscar Arredondo - ED Attending Attestation I have performed the following: I have examined & evaluated the patient, The case was reviewed & discussed with the resident, I agree w/resident's findings & plan, Exceptions are as noted - HPI HPI: 04/19/20 21:33 Agree with Resident - Physicial Exam PE: 04/19/20 21:33 Agree with resident - Medical Decision Making 04/19/20 21:33 A and P 34 year old female with sore throat and palpitations after sti exposure Concerned for covid Ekg and discharge EKG Normal sinus rhythm at 83 Nonspecific t wave inversion at 3 No acute ischemia No abnormal interval Time 1945 Discharge - Discharge Information Clinical Impression/Diagnosis: Anxiety, Palpitations Condition: Good Disposition: HOME - Follow up/Referral Referrals: Elder Coe MD [Staff Physician] - Chuy Hemphill NP [Nurse Practitioner] - Larry Arambula MD [Staff Physician] - - Patient Discharge Instructions Patient Printed Discharge Instructions: DI for Anxiety -- Adult Additional Instructions: Your exam and workup did not show anything concerning Please follow up with the referred primary care Dr Coe, child life assistant Dr Arambula, and therapist DARIO Hemphill regarding your symptoms - Post Discharge Activity
== END 2020-04-19 22:40 | disposition home or self-care (01) ==
LOC: JER 19:32
DX: F41.9 Anxiety disorder, unspecified (principal); R00.2 Palpitations
CPT/HCPCS: 71045-TC-FY; 84703; 93005; 93010; 99285-25